=== PATIENT | male | born 1950 | race Caucasian/White ===

== ENCOUNTER 2019-05-15 19:21 | Inpatient (IN) | payer OTHER, MEDICAID ==
[~2019-05-15] VITALS: Ht 114.3 cm; Wt 64.2 kg
[2019-05-15 19:21] VITALS: BP_SYST 105
[2019-05-15] MEDS ORDERED: NACL 0.9% 1,000 ML IV ONE (19:52)
[2019-05-15] MEDS ORDERED: methylPREDNISolone SOD SUCC/PF 62.5 MG/ML VIAL IVP ONE (20:00)
[2019-05-15] MEDS ORDERED: IPRATROPIUM BROM 0.5 MG/2.5 ML VIAL.NEB (ATROVENT) INH ONE (20:00)
[2019-05-15] MEDS ORDERED: ALBUTEROL SULFATE 0.083% 2.5 MG/3 ML VIAL.NEB INH ONE (20:00)
[2019-05-15] MEDS ORDERED: cefTRIAXone 1 GM IVPB PREMIX 50 ML IV ONE (20:15)
--- NOTE | 2019-05-15 20:20 | NUR ---
Patient to ER bed 6 to gown for evaluation. Side rails up.
--- NOTE | 2019-05-15 20:21 | NUR ---
Dr. Tay bedside for pt eval
[2019-05-15 20:23] LABS: BASOPHILS % (AUTO) 0.4 % (0.0-2.0); EOSINOPHILS # (AUTO) 0.1 K/uL (0.0-0.4); EOSINOPHILS % (AUTO) 1.3 % (0.0-4.0); HEMATOCRIT 29.5 % (36-54); HEMOGLOBIN 9.8 g/dL (14.0-18.0); LYMPHOCYTES # (AUTO) 2.3 K/uL (1.0-5.5); LYMPHOCYTES % (AUTO) 26.3 % (20.5-51.5); MEAN CORPUSCULAR HEMOGLOBIN 30 pg (27-31); MEAN CORPUSCULAR HGB CONC 33 % (32-36); MEAN CORPUSCULAR VOLUME 90 fL (79.0-98.0); MONOCYTES # (AUTO) 0.9 K/uL (0.0-1.0); MONOCYTES % (AUTO) 10.7 % (1.7-9.3); NEUTROPHILS # (AUTO) 5.2 K/uL (1.8-7.7); NEUTROPHILS % (AUTO) 61.3 % (40.0-70.0); PLATELET COUNT (AUTO) 334 K/uL (130-430); RED BLOOD CELL COUNT(AUTO) 3.27 MIL/uL (4.2-6.2); WHITE BLOOD COUNT (AUTO) 8.6 K/uL (4.8-10.8)
--- NOTE | 2019-05-15 20:25 | NUR ---
Pt BIBA from [facility] to ED with Hx of PVD, CAD, CHF, pneumonia, kidney transplant, cardiac disorder, diabetes, hypertension, renal failure, skin cancer, NSTEMI, triple bypass, bilateral above the knee amputation who presents with a 1 week history of gradual onset, moderate shortness of breath. Symptoms associated with cough and fever. Patient was BIBA from [facility] for decrease O2 saturation. Denies any nausea, vomiting, diarrhea. No other complaints and or injurieds Overall guarded condition Resting on gurney rails up
--- NOTE | 2019-05-15 20:30 | NUR ---
Lab at bedside for blood draw, well tolerated
[2019-05-15 20:37] LABS: CALCIUM 7.9 mg/dL (8.4-11.0); CREATININE 1.51 mg/dL (0.55-1.30); POTASSIUM 4.4 mmol/L (3.5-5.1)
[2019-05-15 20:40] LABS: INR 1.1 (0.80-1.20); PROTHROMBIN TIME 11.3 SECS (9.5-12.5)
[2019-05-15 20:53] LABS: ALBUMIN 2.1 g/dL (3.4-4.8); TOTAL BILIRUBIN 0.3 mg/dL (0.0-1.0)
[2019-05-15] MEDS ORDERED: FURO-149 PO (21:07)
[2019-05-15] MEDS ORDERED: CLOP75TA32 PO (21:07)
[2019-05-15] MEDS ORDERED: ISOS30TA6 PO (21:09)
[2019-05-15] MEDS ORDERED: LEVA1.2527 NEB ×2 (21:12)
[2019-05-15] MEDS ORDERED: ASPI-1153 PO (21:13)
[2019-05-15] MEDS ORDERED: AMLO5TAB4 PO (21:13)
[2019-05-15] MEDS ORDERED: CYCL25CA12 PO (21:14)
[2019-05-15] MEDS ORDERED: DOCU-144 PO (21:15)
[2019-05-15] MEDS ORDERED: SACU1TAB PO (21:17)
[2019-05-15] MEDS ORDERED: GLIP10TA11 PO (21:18)
[2019-05-15] MEDS ORDERED: GABA-531 PO (21:18)
[2019-05-15] MEDS ORDERED: GLU500 PO (21:19)
[2019-05-15] MEDS ORDERED: MULT-1100 PO (21:21)
[2019-05-15] MEDS ORDERED: SIMV40TA5 PO (21:22)
[2019-05-15] MEDS ORDERED: OMEP40CA33 PO (21:23)
--- NOTE | 2019-05-15 21:24 | NUR ---
Medication reconciliation completed with information provided by [facility]. Any prior medication reconciliation on file was reviewed and corrected.
[2019-05-15] MEDS ORDERED: FUROSEMIDE 40 MG/4 ML VIAL IVP ONE (21:30)
[2019-05-15] MEDS ORDERED: ASPIRIN 81 MG TAB.CHEW PO ONE (22:00)
[2019-05-15 22:20] LABS: BILIRUBIN,URINE NEGATIVE (NEGATIVE); BLOOD, URINE 3+ (NEGATIVE); COLOR,URINE YELLOW (YELLOW); GLUCOSE,URINE NEGATIVE (NEGATIVE); KETONES,URINE NEGATIVE (NEGATIVE); LEUKOCYTE ESTERASE ,URINE 1+ (NEGATIVE); NITRITE, URINE NEGATIVE (NEGATIVE); PH,URINE 5.5 (5.0-8.0); PROTEIN URINE 2+ (NEGATIVE); UROBILINOGEN,URINE 0.2 (0.2-1.0)
[2019-05-15 22:26] LABS: CLARITY/URINE HAZY (CLEAR)
[2019-05-15] MEDS ORDERED: DOCUSATE SODIUM 100 MG CAPSULE PO PRN (22:30)
[2019-05-15 22:34] LABS: BACTERIA,URINE MODERATE /HPF (None Seen); RBC,URINE 50-80 /HPF (0-3); WBC,URINE 80-100 /HPF (0-3)
[2019-05-15 22:35] LABS: CALCIUM OXALATE CRYSTALS,UR 0-10 /HPF (None Seen); MUCUS,URINE None Seen /LPF (None Seen); URINE AMORPHOUS URATE 2+ /HPF (None Seen); YEAST,URINE Moderate /HPF (None Seen)
--- NOTE | 2019-05-15 22:38 | NUR ---
Transfer to Telemetry via ACLS protocol. Licensed nurse present. IV present no signs or symptoms of infiltration.
--- NOTE | 2019-05-15 22:38 | NUR ---
Patient will be admitted to care of [facility]. Admitted to Telemetry unit. Will go to room 133. Belongings list completed. Complete and up to date summary report printed. SBAR report to be given at bedside with opportunity for questions.
--- NOTE | 2019-05-15 22:38 | NUR ---
ADMISSION: The patient, AYLIN LEVY, 69 y/o, M admitted by CAROLYNE QUILES MD,with the diagnosis of CHF , COPD EXACERBATION, ELEVATED TROPONIN, C RENAL FAILURE , POST RENAL TRANSPLANT TO ROOM 133 B Chidi BACH AT BEDSIDE .
[2019-05-15 22:45] VITALS: BP_SYST 104
[2019-05-15] MEDS ORDERED: ACETAMINOPHEN 325 MG TABLET PO PRN (22:45)
[2019-05-15] MEDS ORDERED: ZOLPIDEM TARTRATE 5 MG TABLET PO PRN (22:45)
[2019-05-16] VITALS (7 sets, daily range): BP systolic 93–136
--- NOTE | 2019-05-16 00:30 | NUR ---
ROUNDS [place] and water given and fed by pt's son, pt tolerated well. Aspiration precaution maintained with head elevated at 45 degrees. No complains of pain and no signs of acute distress noted. Safety precautions in place and call light with pt. Will continue to monitor.
[2019-05-16] MEDS: IPRATROPIUM/ALBUTEROL SULFATE 3 ML AMPUL.NEB (DUONEB) INH SCH ×4 (01:36→19:48)
--- NOTE | 2019-05-16 03:40 | NUR ---
ROUNDS Pt is resting in bed with both eyes closed, with visible chest rise and fall with non-labored breathing noted. No signs of acute distress or SOB noted. No needs at this time. Safety precautions in place and call light with pt. Will continue to monitor.
[2019-05-16] MEDS: LANSOPRAZOLE 30 MG CAPSULE.DR PO SCH (06:13)
[2019-05-16] MEDS: INSULIN LISPRO SLIDING SCALE 100 UNITS/ML VIAL (humaLOG) SUBCUT PRN ×4 (06:19→22:09)
--- NOTE | 2019-05-16 06:34 | NUR ---
CLOSING NOTES Pt is resting in bed with both eyes closed, with visible chest rise and fall with non-labored breathing noted. No complains of pain at this time. No signs of acute distress or SOB noted. All needs attended throughout the shift. Maintained O2 inhalation at 3L via nasal cannula. Safety precautions maintained with 3 side rails up, wheels locked, bed alarm on and in lowest level. Call light with pt. Will continue to monitor.
[2019-05-16 07:10] LABS: BASOPHILS % (AUTO) 0.2 % (0.0-2.0); HEMATOCRIT 30.4 % (36-54); LYMPHOCYTES # (AUTO) 0.4 K/uL (1.0-5.5); MEAN CORPUSCULAR HEMOGLOBIN 30 pg (27-31); MEAN CORPUSCULAR HGB CONC 33 % (32-36); MEAN CORPUSCULAR VOLUME 91 fL (79.0-98.0); MONOCYTES # (AUTO) 0.4 K/uL (0.0-1.0); NEUTROPHILS # (AUTO) 12.3 K/uL (1.8-7.7); NEUTROPHILS % (AUTO) 93.8 % (40.0-70.0); PLATELET COUNT (AUTO) 334 K/uL (130-430); RED BLOOD CELL COUNT(AUTO) 3.35 MIL/uL (4.2-6.2); RED CELL DISTRIBUTION WIDTH 16.3 % (9.0-15.0); WHITE BLOOD COUNT (AUTO) 13.1 K/uL (4.8-10.8)
--- NOTE | 2019-05-16 07:15 | NUR ---
Received report and patient from [facility] shift nurse. Patient in no acute distress. Awake, alert, oriented. Side rails x 3 up. Call light with in reach.
[2019-05-16 07:43] LABS: ALBUMIN 2.1 g/dL (3.4-4.8); CREATININE 1.68 mg/dL (0.55-1.30); POTASSIUM 4.4 mmol/L (3.5-5.1); THYROID STIMULATING HORMONE 0.89 uIu/mL (0.36-3.74)
[2019-05-16 07:56] LABS: TOTAL BILIRUBIN 0.5 mg/dL (0.0-1.0)
[2019-05-16] MEDS ORDERED: INSULIN GLARGINE 100 UNITS/ML 10 ML VIAL SUBCUT ONE ×2 (08:15→22:00)
--- NOTE | 2019-05-16 08:40 | NUR ---
MD Zimmerman requested original editing intern as consult or if unable Md Welch to be put on the case. Spoke to patient, original editing intern unable. MD Welch paged for consult.
[2019-05-16] MEDS ORDERED: SIMVASTATIN 40 MG TABLET PO SCH (09:00)
[2019-05-16] MEDS ORDERED: OMEPRAZOLE Non-Formulary 20 MG CAPSULE.DR PO SCH (09:00)
--- NOTE | 2019-05-16 09:03 | NUR ---
Nutrition Update Abdoulaye Scale 15 noted. Pt admitted for CHF, COPD. Diet: [facility] BMI: 51.1 kg/m2 RD to follow per nutrition care standards.
--- NOTE | 2019-05-16 09:13 | NUR ---
Nephro consult called: for Dr. Welch, regarding hx of kidney failure and right kidney transplant, ordered by Dr. Zimmerman, spoke with Nadine.
[2019-05-16] MEDS: ASPIRIN 81 MG TABLET(ECOTRIN) PO SCH (09:23)
[2019-05-16] MEDS: cefTRIAXone 1 GM in D5W 50 ML IV SCH (09:24)
[2019-05-16] MEDS: amLODIPine BESYLATE 5 MG TABLET PO SCH (09:25)
[2019-05-16] MEDS: GABAPENTIN 300 MG CAPSULE PO SCH ×3 (09:29→21:44)
[2019-05-16] MEDS: ISOSORBIDE MONONITRATE 30 MG TAB.ER.24H PO SCH ×2 (09:30→22:02)
[2019-05-16] MEDS: CLOPIDOGREL BISULFATE 75 MG TABLET PO SCH (09:31)
--- NOTE | 2019-05-16 13:15 | NUR ---
MD Zimmerman stated aware of troponin 0.434.
--- NOTE | 2019-05-16 17:56 | NUR ---
Cardiac consult called: for Dr. Mccarty, regarding CHF and elevated troponin, ordered by Dr. Zimmerman, spoke with Diane.
[2019-05-16] MEDS ORDERED: cefTRIAXone 1 GM in D5W 50 ML IV SCH (18:00)
[2019-05-16] MEDS ORDERED: FUROSEMIDE 40 MG/4 ML VIAL IVP ONE (18:15)
--- NOTE | 2019-05-16 19:09 | NUR ---
Patient in bed, awake, alert and in no acute distress. Side rails x 3 up. Call light with in reach. Endorsed patient and gave report to oncoming shift nurse.
--- NOTE | 2019-05-16 19:25 | NUR ---
Opening note Received patient resting in bed, no s/sx of distress, nonlabored breathing on 4L NC. IV is SL to RFA. Side rails up up 3x, bed alarm on and instructed on use of call light. Diego catheter bag is draining to gravity. Updated board and reviewed plan of care.
--- NOTE | 2019-05-16 20:09 | NUR ---
Breathing Tx RT providing breathing treatment.
[2019-05-16] MEDS: FUROSEMIDE 40 MG/4 ML VIAL IVP SCH (21:00)
--- NOTE | 2019-05-16 21:56 | NUR ---
Dr. Zimmerman s/w Dr. Zimmerman and informed Fingerstick BG is 235 mg/dL, she said give scheduled coverage and gave additional order to add 10 units Lantus. Order was readback and entered in [employer].
[2019-05-17] VITALS: BP_SYST 102
[2019-05-17] MEDS: IPRATROPIUM/ALBUTEROL SULFATE 3 ML AMPUL.NEB (DUONEB) INH SCH ×4 (00:39→22:44)
--- NOTE | 2019-05-17 04:20 | NUR ---
awake Patient was repositioned for comfort. He was assisted with a drink of water. He was assisted with the t.v. safety precautions in place and call light w/in reach.
[2019-05-17] MEDS: LANSOPRAZOLE 30 MG CAPSULE.DR PO SCH (06:17)
[2019-05-17] MEDS: INSULIN LISPRO SLIDING SCALE 100 UNITS/ML VIAL (humaLOG) SUBCUT PRN ×3 (06:21→21:27)
[2019-05-17 06:51] LABS: BASOPHILS % (AUTO) 0.3 % (0.0-2.0); HEMATOCRIT 30.5 % (36-54); HEMOGLOBIN 10.1 g/dL (14.0-18.0); LYMPHOCYTES # (AUTO) 0.7 K/uL (1.0-5.5); LYMPHOCYTES % (AUTO) 5.8 % (20.5-51.5); MEAN CORPUSCULAR HEMOGLOBIN 30 pg (27-31); MEAN CORPUSCULAR HGB CONC 33 % (32-36); MEAN CORPUSCULAR VOLUME 90 fL (79.0-98.0); MONOCYTES # (AUTO) 0.6 K/uL (0.0-1.0); MONOCYTES % (AUTO) 5.7 % (1.7-9.3); NEUTROPHILS # (AUTO) 10.1 K/uL (1.8-7.7); NEUTROPHILS % (AUTO) 88.2 % (40.0-70.0); PLATELET COUNT (AUTO) 301 K/uL (130-430); RED CELL DISTRIBUTION WIDTH 16.1 % (9.0-15.0); WHITE BLOOD COUNT (AUTO) 11.5 K/uL (4.8-10.8)
[2019-05-17 06:58] LABS: CALCIUM 8.1 mg/dL (8.4-11.0); CREATININE 2.01 mg/dL (0.55-1.30); THYROID STIMULATING HORMONE 0.96 uIu/mL (0.36-3.74); TOTAL BILIRUBIN 0.3 mg/dL (0.0-1.0)
[2019-05-17 08:00] VITALS: BP_SYST 138
--- NOTE | 2019-05-17 08:00 | NUR ---
initial notes rec patient awake laert with ivl infiltrated. denies pain. resp easy and unlabored. no sob noted. bed to the lowest position and side rails up and locked. will continue to monitor patient.
[2019-05-17] MEDS: cefTRIAXone 1 GM in D5W 50 ML IV SCH (09:16)
[2019-05-17] MEDS: amLODIPine BESYLATE 5 MG TABLET PO SCH (09:53)
[2019-05-17] MEDS: ISOSORBIDE MONONITRATE 30 MG TAB.ER.24H PO SCH ×2 (09:53→22:30)
[2019-05-17] MEDS: GABAPENTIN 300 MG CAPSULE PO SCH ×3 (09:53→22:29)
[2019-05-17] MEDS: CLOPIDOGREL BISULFATE 75 MG TABLET PO SCH (09:53)
[2019-05-17] MEDS: ASPIRIN 81 MG TABLET(ECOTRIN) PO SCH (09:53)
--- NOTE | 2019-05-17 10:35 | NUR ---
ARRANGED TO GET MEDICAL RECORDS FROM RECENT HOSPITALIZATION. PER DR BRENNAN, HE REQUESTED THE RECORDS FROM [facility] SPOKE TO DAVID. BUT THE PT SAID HIS LATEST HOSPITALIZATION WAS IN [facility]. I ALSO REQUESTED THE RECORDS . SPOKE TO IQRA AT [facility]
[2019-05-17 12:30] VITALS: BP_SYST 118
[2019-05-17] MEDS: FUROSEMIDE 40 MG/4 ML VIAL IVP SCH ×2 (13:42→22:30)
[2019-05-17] MEDS ORDERED: INSULIN GLARGINE 100 UNITS/ML 10 ML VIAL SUBCUT ONE (14:00)
[2019-05-17 16:15] VITALS: BP_SYST 117
--- NOTE | 2019-05-17 17:51 | NUR ---
Dietitian Recommendations * [facility] * No further dietary restrictions warranted d/t suboptimal PO intakes * Encourage increase PO intakes * Consider Glucerna ONS if PO intakes do not improve LP, RD Please refer to Nutrition Assessment for details. Addendum: 05/17/19 at [address] Amended: Links added.
[2019-05-17] MEDS ORDERED: FLUCONAZOLE 100 MG TABLET (DIFLUCAN) PO ONE (18:00)
[2019-05-17] MEDS ORDERED: BISACODYL 10 MG/SUPPOSITORY RC PRN (18:15)
--- NOTE | 2019-05-17 19:35 | NUR ---
Opening note Received patient resting in bed, no s/sx of distress, nonlabored breathing. IV is SL to RFA. Side rails up up 3x, bed alarm on and instructed on use of call light. Diego catheter bag is draining to gravity. Updated board and reviewed plan of care.
--- NOTE | 2019-05-17 19:40 | NUR ---
Dr keyona Zimmerman making rounds and provided new orders
[2019-05-17 20:30] VITALS: BP_SYST 107
--- NOTE | 2019-05-17 21:30 | NUR ---
Fingerstick BG Fingerstick BG test done w/ result of 184 and administered 3u Humalog per sliding scale order.
[2019-05-17] MEDS: DOCUSATE SODIUM 250 MG CAPSULE PO SCH (22:29)
[2019-05-17 23:27] VITALS: BP_SYST 96
[2019-05-18] VITALS (7 sets, daily range): BP systolic 119–165
--- NOTE | 2019-05-18 01:33 | NUR ---
Can't sleep Patient reports he can't sleep and he said he said it is due to room mates noise. He said he does not understand why he was moved to this room and placed between two patients that are making noise. I offered him a sleeping pill and he agreed to take it, he was given Ambien as ordered. He was repositioned for comfort. Will follow up. Direct observer in room, with patient as she is a direct observer for patient in bed C.
[2019-05-18] MEDS: IPRATROPIUM/ALBUTEROL SULFATE 3 ML AMPUL.NEB (DUONEB) INH SCH ×4 (01:52→20:17)
--- NOTE | 2019-05-18 02:12 | NUR ---
Fingerstick BG Fingerstick BG test done w/ result of 131 mg/dL; no coverage.
[2019-05-18] MEDS: LANSOPRAZOLE 30 MG CAPSULE.DR PO SCH (06:09)
--- NOTE | 2019-05-18 06:18 | NUR ---
PAGED PAGED CAROLYNE YA [place] [phone] SPOKE WITH EXCHANGE.
--- NOTE | 2019-05-18 06:23 | NUR ---
S/W Dr Zimmerman s/w Dr. Zimmerman, I updated her on patient's blood sugar. Now it's 125 mg/dL and she said hold insulin. She also said she spoke w/ Dr. Elizabeth and he will be in to evaluate-follow patient.
--- NOTE | 2019-05-18 06:25 | NUR ---
X-ray X-ray tech at bedside for chest x-ray.
--- NOTE | 2019-05-18 06:28 | NUR ---
Closing Note Patient resting in bed in comfortable position, no s/sx of distress, nonlabored breathing. IV is SL to RFA. Side rails up up 3x, bed alarm. Diego catheter bag is draining to gravity. Needs met throughout shift, will endorse care to incoming day shift nurse.
[2019-05-18 07:22] LABS: BASOPHILS % (AUTO) 0.5 % (0.0-2.0); EOSINOPHILS # (AUTO) 0.1 K/uL (0.0-0.4); HEMOGLOBIN 9.4 g/dL (14.0-18.0); LYMPHOCYTES # (AUTO) 1.2 K/uL (1.0-5.5); LYMPHOCYTES % (AUTO) 14.9 % (20.5-51.5); MEAN CORPUSCULAR HEMOGLOBIN 30 pg (27-31); MEAN CORPUSCULAR HGB CONC 34 % (32-36); MEAN CORPUSCULAR VOLUME 90 fL (79.0-98.0); MONOCYTES # (AUTO) 0.8 K/uL (0.0-1.0); MONOCYTES % (AUTO) 10.1 % (1.7-9.3); NEUTROPHILS # (AUTO) 5.9 K/uL (1.8-7.7); NEUTROPHILS % (AUTO) 73.5 % (40.0-70.0); PLATELET COUNT (AUTO) 310 K/uL (130-430); RED BLOOD CELL COUNT(AUTO) 3.12 MIL/uL (4.2-6.2); RED CELL DISTRIBUTION WIDTH 16.2 % (9.0-15.0)
[2019-05-18 07:41] LABS: ALBUMIN 2.1 g/dL (3.4-4.8); CALCIUM 8.1 mg/dL (8.4-11.0); CREATININE 1.5 mg/dL (0.55-1.30); PHOSPHORUS 3.1 mg/dL (2.7-4.5); POTASSIUM 3.9 mmol/L (3.5-5.1); TOTAL BILIRUBIN 0.3 mg/dL (0.0-1.0)
--- NOTE | 2019-05-18 07:50 | NUR ---
INITIAL NOTE RECEIVED PT IN BED, NO S/S OF DISTRESS OR SOB NOTED, PT HAS NO C/O PAIN AT THIS TIME, PT IN STABLE CONDITION, PT AAOX3, VERBAL. IV CATHETER PATENT, NO SIGNS OF INFECTION OR INFILTRATION NOTED. PT HAS OXYGEN 2 LITERS VIA NASAL CANNULA, SATURATION OF 95%. BED AT LOWEST POSITION, CALL LIGHT WITHIN REACH, WILL CONTINUE TO MONITOR PT FOR ANY CHANGES, FALL AND SAFETY PRECAUTIONS IN PLACE.
[2019-05-18] MEDS: ISOSORBIDE MONONITRATE 30 MG TAB.ER.24H PO SCH ×2 (08:35→20:45)
[2019-05-18] MEDS: ASPIRIN 81 MG TABLET(ECOTRIN) PO SCH (08:35)
[2019-05-18] MEDS: CLOPIDOGREL BISULFATE 75 MG TABLET PO SCH (08:36)
[2019-05-18] MEDS: amLODIPine BESYLATE 5 MG TABLET PO SCH (08:36)
[2019-05-18] MEDS: FLUCONAZOLE 100 MG TABLET (DIFLUCAN) PO SCH (08:36)
[2019-05-18] MEDS: DOCUSATE SODIUM 250 MG CAPSULE PO SCH ×2 (08:36→20:45)
[2019-05-18] MEDS: GABAPENTIN 300 MG CAPSULE PO SCH ×3 (08:36→20:47)
[2019-05-18] MEDS: FUROSEMIDE 40 MG/4 ML VIAL IVP SCH ×2 (08:37→20:47)
[2019-05-18] MEDS: cefTRIAXone 1 GM in D5W 50 ML IV SCH (08:38)
--- NOTE | 2019-05-18 10:30 | NUR ---
ROUNDS PT IN BED, NO S/S OF DISTRESS OR SOB NOTED. PT HAS NO C/O PAIN AT THIS TIME. PT IN STABLE CONDITION. PT RESTING COMFORTABLY. PT WATCHING TV, WILL CONTINUE TO MONITOR PT FOR ANY CHANGES.
--- NOTE | 2019-05-18 11:30 | NUR ---
CALL PAGED DR HURTADO FOR ORDERS TO COVER PATIENT'S BLOOD GLUCOSE OF [phone], AWAITING CALL BACK. Addendum: 05/18/19 at 1311 by Paulette Green RN SPOKE WITH AND GAVE NEW ORDERS FOR INSULIN COVERAGE
[2019-05-18] MEDS: INSULIN LISPRO SLIDING SCALE 100 UNITS/ML VIAL (humaLOG) SUBCUT PRN ×2 (12:22→17:06)
--- NOTE | 2019-05-18 18:37 | NUR ---
CLOSING NOTE PT IN BED, NO S/S OF DISTRESS OR SOB NOTED, PT HAS NO C/O PAIN AT THIS TIME, PT IN STABLE CONDITION, PT AAOX3, VERBAL. IV CATHETER PATENT, NO SIGNS OF INFECTION OR INFILTRATION NOTED. PT HAS OXYGEN 2 LITERS VIA NASAL CANNULA, SATURATION OF 95%. BED AT LOWEST POSITION, CALL LIGHT WITHIN REACH, WILL ENDORSE CARE OF PT TO INCOMING NURSE, FALL AND SAFETY PRECAUTIONS IN PLACE.
--- NOTE | 2019-05-18 19:20 | NUR ---
Opening note Received patient resting in bed, no s/sx of distress, nonlabored breathing. IV is SL to RFA. He is talking with son, visiting at bedside. Side rails up up 3x, bed alarm on and instructed on use of call light. Diego catheter bag is draining to gravity. Updated board and reviewed plan of care.
--- NOTE | 2019-05-18 20:58 | NUR ---
medications Due medications given, educated on side effects and he verbalized understanding. Fingerstick BS done w/ result of 144mg/dL; no coverage. He has no further needs, will continue to monitor.
--- NOTE | 2019-05-19 00:20 | NUR ---
RN rounds Patient resting w/ eyes closed, momentarily awakened for reposition. No s/sx of distress. Safety precautions in place and call light w/in reach.
[2019-05-19] MEDS: IPRATROPIUM/ALBUTEROL SULFATE 3 ML AMPUL.NEB (DUONEB) INH SCH ×4 (01:28→19:50)
--- NOTE | 2019-05-19 02:10 | NUR ---
Resting Patient resting in comfortable position, symmetrical rise and fall of chest noted, nonlabored breathing. Safety precautions in place and call light w/in reach.
--- NOTE | 2019-05-19 04:15 | NUR ---
RN rounds Patient resting w/ eyes closed, momentarily awakened for reposition. No s/sx of distress. Presently denies pain and has no further needs. Safety precautions in place and call light w/in reach.
--- NOTE | 2019-05-19 05:11 | NUR ---
Lab draw light technician at bedside for blood draw.
[2019-05-19] MEDS: LANSOPRAZOLE 30 MG CAPSULE.DR PO SCH (06:29)
--- NOTE | 2019-05-19 07:00 | NUR ---
closing note Fingerstick BS done w/ result of 108 mg/dL; no coverage. Sacral dressing change done, repositioned supine per his request. Safety precautions in place, call light near. Needs met throughout shift, will endorse care to incoming nurse. He has no further needs, will continue to monitor.
[2019-05-19 07:26] LABS: BASOPHILS # (AUTO) 0.1 K/uL (0.0-0.2); BASOPHILS % (AUTO) 0.9 % (0.0-2.0); EOSINOPHILS # (AUTO) 0.2 K/uL (0.0-0.4); HEMATOCRIT 28.6 % (36-54); HEMOGLOBIN 9.6 g/dL (14.0-18.0); LYMPHOCYTES # (AUTO) 1.6 K/uL (1.0-5.5); LYMPHOCYTES % (AUTO) 20.9 % (20.5-51.5); MEAN CORPUSCULAR HEMOGLOBIN 30 pg (27-31); MEAN CORPUSCULAR HGB CONC 34 % (32-36); MEAN CORPUSCULAR VOLUME 90 fL (79.0-98.0); MONOCYTES # (AUTO) 0.8 K/uL (0.0-1.0); MONOCYTES % (AUTO) 10.7 % (1.7-9.3); NEUTROPHILS # (AUTO) 4.8 K/uL (1.8-7.7); PLATELET COUNT (AUTO) 333 K/uL (130-430); WHITE BLOOD COUNT (AUTO) 7.5 K/uL (4.8-10.8)
[2019-05-19 07:48] LABS: ALBUMIN 2.1 g/dL (3.4-4.8); CALCIUM 8.1 mg/dL (8.4-11.0); CREATININE 1.04 mg/dL (0.55-1.30); PHOSPHORUS 2.8 mg/dL (2.7-4.5); POTASSIUM 3.6 mmol/L (3.5-5.1); TOTAL BILIRUBIN 0.4 mg/dL (0.0-1.0)
[2019-05-19 08:00] VITALS: BP_SYST 112
--- NOTE | 2019-05-19 08:00 | NUR ---
Note Pt was assisted into sitting up in bed to eat breakfast. No SOB/resp distress or pain/discomfort noted at this time. O2 at 2L/nc on at this time. Tele unit attached and intact. IV in right forearm intact and patent. No needs noted at this time. Call light within reach.
[2019-05-19] MEDS: cefTRIAXone 1 GM in D5W 50 ML IV SCH (08:58)
[2019-05-19] MEDS: CLOPIDOGREL BISULFATE 75 MG TABLET PO SCH (09:14)
[2019-05-19] MEDS: amLODIPine BESYLATE 5 MG TABLET PO SCH (09:14)
[2019-05-19] MEDS: FLUCONAZOLE 100 MG TABLET (DIFLUCAN) PO SCH (09:14)
[2019-05-19] MEDS: ASPIRIN 81 MG TABLET(ECOTRIN) PO SCH (09:14)
[2019-05-19] MEDS: DOCUSATE SODIUM 250 MG CAPSULE PO SCH ×2 (09:14→20:12)
[2019-05-19] MEDS: ISOSORBIDE MONONITRATE 30 MG TAB.ER.24H PO SCH ×2 (09:15→20:13)
[2019-05-19] MEDS: GABAPENTIN 300 MG CAPSULE PO SCH ×3 (09:15→20:13)
[2019-05-19] MEDS: FUROSEMIDE 40 MG/4 ML VIAL IVP SCH ×2 (09:16→20:13)
[2019-05-19] MEDS: INSULIN GLARGINE 100 UNITS/ML 10 ML VIAL SUBCUT SCH (09:27)
[2019-05-19 09:38] LABS: NEUTROPHILS % (AUTO) 64.5 % (40.0-70.0)
--- NOTE | 2019-05-19 11:00 | NUR ---
Note Pt has 2 visitors at bedside at this time. Pt denies any needs at this time. Diego catheter intact and draining well all shift. Call light within reach.
[2019-05-19 11:30] VITALS: BP_SYST 134
[2019-05-19] MEDS: INSULIN LISPRO SLIDING SCALE 100 UNITS/ML VIAL (humaLOG) SUBCUT PRN ×2 (11:55→20:22)
--- NOTE | 2019-05-19 15:00 | NUR ---
Note Pt asleep in bed with O2 at 2L/nc at this time. No needs noted at this time. Call light within reach. Tele unit intact and attached.
[2019-05-19 16:00] VITALS: BP_SYST 133
--- NOTE | 2019-05-19 18:02 | NUR ---
Note Pt sitting up in bed eating his dinner. No SOB/resp distress or pain/discomfort noted at this time. Pt has O2 at 2L/nc all shift. Diego catheter intact and draining all shift. Tele unit intact and attached all shift. Pt was checked on q1' and PRN all shift for needs and care. IV in right hand intact and patent. No needs noted at this time. Call light within reach. Pt maintained with safety precautions all shift.
--- NOTE | 2019-05-19 19:10 | NUR ---
OPENING NOTES Patient awake, sitting in bed watching TV, AOx3. Patient has no signs of respiratory distress noted, denies pain and discomfort at this time. On 2L of oxygen vis nasal cannula, attached and secured. IV site, patency noted. Diego catheter, attached and secured, draining by gravity. Vital signs take and recorded. Call light within reach, patient educated to use call light when assistance is needed, patient verbalized understanding. Bed locked and in lowest position. Bed alarm on. Safety precautions in place. Will continue to monitor patient.
[2019-05-19 20:01] VITALS: BP_SYST 135
--- NOTE | 2019-05-19 20:20 | NUR ---
MED PASS/BS 182 Due medication given at this time, patient tolerated well. Patient educated on purpose, side effects and benefits of each medication that is taken, patient verbalized understanding. Needs attended at this time. Repositioned for comfort. Safety precautions in place. Will continue to monitor patient.
--- NOTE | 2019-05-19 23:25 | NUR ---
RN ROUNDS Patient asleep at this time. No signs of respiratory distress and discomfort noted. Breathing even and unlabored. On 2L of oxygen, attached and secured. Safety precautions in place. Will continue to monitor patient.
[2019-05-20] MEDS: IPRATROPIUM/ALBUTEROL SULFATE 3 ML AMPUL.NEB (DUONEB) INH SCH ×3 (01:30→13:35)
--- NOTE | 2019-05-20 01:30 | NUR ---
MIYA CARE/WOUND CARE Miya care done at this time, with help of VANDANA Batista. Wound care done, patient tolerated well. No signs of respiratory distress and discomfort noted. Denies pain at this time. Safety precautions in place. Will continue to monitor.
[2019-05-20 02:11] VITALS: BP_SYST 140
--- NOTE | 2019-05-20 02:35 | NUR ---
RN ROUNDS Patient asleep at this time. No signs of respiratory distress and discomfort noted. Breathing even and unlabored. On 2L of oxygen, attached and secured. Diego attached and secured, draining by gravity. Safety precautions in place. Will continue to monitor patient.
[2019-05-20] MEDS: LANSOPRAZOLE 30 MG CAPSULE.DR PO SCH (06:12)
[2019-05-20] MEDS: INSULIN LISPRO SLIDING SCALE 100 UNITS/ML VIAL (humaLOG) SUBCUT PRN ×3 (06:15→16:22)
--- NOTE | 2019-05-20 06:26 | NUR ---
CLOSING NOTES Patient awake and watching TV. Patient has no signs of respiratory distress noted. Denies pain and discomfort at this time. On 2L of oxygen via nasal cannula, attached and secured. IV site, patency noted. Diego catheter, attached and secured, draining by gravity. Call light within reach. Bed locked and in lowest position. Bed alarm on. Safety precautions in place. Repositioned Q2H. All needs met throughout the shift. Will continue to monitor until endorse to oncoming shift nurse for continuity of care.
[2019-05-20 08:14] LABS: CALCIUM 8.3 mg/dL (8.4-11.0); CREATININE 0.97 mg/dL (0.55-1.30); POTASSIUM 3.8 mmol/L (3.5-5.1)
[2019-05-20] MEDS: cefTRIAXone 1 GM in D5W 50 ML IV SCH (08:28)
[2019-05-20] MEDS: ASPIRIN 81 MG TABLET(ECOTRIN) PO SCH (08:28)
[2019-05-20] MEDS: CLOPIDOGREL BISULFATE 75 MG TABLET PO SCH (08:28)
[2019-05-20] MEDS: DOCUSATE SODIUM 250 MG CAPSULE PO SCH (08:28)
[2019-05-20] MEDS: FLUCONAZOLE 100 MG TABLET (DIFLUCAN) PO SCH (08:28)
[2019-05-20] MEDS: GABAPENTIN 300 MG CAPSULE PO SCH ×2 (08:28→14:20)
[2019-05-20] MEDS: amLODIPine BESYLATE 5 MG TABLET PO SCH (08:29)
[2019-05-20] MEDS: INSULIN GLARGINE 100 UNITS/ML 10 ML VIAL SUBCUT SCH (08:30)
[2019-05-20] MEDS: FUROSEMIDE 40 MG/4 ML VIAL IVP SCH (08:31)
[2019-05-20] MEDS: ISOSORBIDE MONONITRATE 30 MG TAB.ER.24H PO SCH (08:34)
[2019-05-20 08:40] VITALS: BP_SYST 113
[2019-05-20 12:24] VITALS: BP_SYST 140
--- NOTE | 2019-05-20 12:25 | NUR ---
ROUNDS PT IN BED, NO S/S OF DISTRESS OR SOB NOTED. PT HAS NO C/O PAIN AT THIS TIME. PT IN STABLE CONDITION. PT RESTING COMFORTABLY. PT TALKING TO VISITORS AT BEDSIDE, WILL CONTINUE TO MONITOR PT FOR ANY CHANGES.
--- NOTE | 2019-05-20 13:55 | NUR ---
ROUNDS DR ETTA BAIRD, AWARE OF PATIENT'S CONDITION, PER PT TO BE TRANSFERRED BACK TO [facility] TODAY, SHE PUT THE ORDER IN YESTERDAY, MADE MD AWARE THAT NO POCKET MACHINE OPERATOR IS ON TODAY BUT WILL TRY TO SEND PT BACK TODAY. Addendum: 05/20/19 at 1410 by Paulette Green RN MADE AWARE THAT PATIENT'S HEART RATE IS IN THE 100'S, PER THIS IS CHRONIC FOR PT
--- NOTE | 2019-05-20 15:08 | NUR ---
MD CALL DR ETTA SHELTON, AWAITING CALL BACK TO SEE IF PT WILL NEED THE F/C AT [facility].
--- NOTE | 2019-05-20 15:10 | NUR ---
MARLENI BROWN SPOKE WITH SARA RN REGULATORY CONSULTANT TO SEE IF PT STILL HAD A BED FOR D/C. PER RN PT IS GOING TO ROOM 109 BED C. SON AT BEDSIDE AND MADE AWARE AND PT MADE AWARE TOO. DISCHARGE PACKET DONE AND TRANSPORTATION WILL BE SET UP.
--- NOTE | 2019-05-20 15:37 | NUR ---
F/C D/C F/C D/C, CATHETER INTACT, NO ACTIVE BLEEDING NOTED, BLADDER NON DISTENDED, WILL NOTIFY MARLENI BROWN THAT F/C WAS D/C AND TO MONITOR FOR VOIDING PER DR QUILES'S ORDER. IF NOT VOIDING, MAY NEED PRN CATHETER INSERTION. EDUCATED PT TO LET NURSE WHEN HE FIRST VOIDS, PT VERBALIZED UNDERSTANDING.
--- NOTE | 2019-05-20 15:40 | NUR ---
AMBULANCE ARRANGEMENT [facility] CALLED SPOKE WITH DAVID FOR A 1800 TUBE BLOWER.
[2019-05-20 16:00] VITALS: BP_SYST 140
[2019-05-20 16:32] VITALS: BP_SYST 128
--- NOTE | 2019-05-20 17:03 | NUR ---
REPORT REPORT GIVEN TO BOSSMAN MORENO AT [facility], , MADE AWARE THAT PT NEEDS DIFLUCAN AND ROCEPHIN UNTIL 05/22/2019 D/C METFORMIN AND DO POST VOID US ON BLADDER AND IF OVER 300CC DO STRAIGHT CATH MADE AWARE THAT PT HAS AN IV CATHETER ON RIGHT FOREARM 22 GAUGE
--- NOTE | 2019-05-20 18:22 | NUR ---
PT TRANSFERRED Report given to Bernarda at [facility]. Transfer packet with Transfer Orders and Medication Reconciliation form given to EMT with report. Exitcare provided. [facility] ID band removed, replaced with ID band with pt's name and . IV catheter in place, saline lock, flushes, no signs of infection or infiltration noted. All belongings sent with patient. Patient left floor via gurney escorted by EMT in no distress. Made Bernarda RN aware that pt has not voided yet and f/c was removed.
== END 2019-05-20 18:22 | DRG 682 ==
LOC: SED 19:21 → STU 21:50
PROVIDERS: ADMIT Internal Medicine; ATTEND Internal Medicine
DX: N17.0 Acute kidney failure with tubular necrosis (principal); J18.9 Pneumonia, unspecified organism; E43 Unspecified severe protein-calorie malnutrition; I50.43 Acute on chronic combined systolic (congestive) and diastolic (congestive) heart failure; I13.0 Hypertensive heart and chronic kidney disease with heart failure and stage 1 through stage 4 chronic kidney disease, or unspecified chronic kidney disease; J44.0 Chronic obstructive pulmonary disease with (acute) lower respiratory infection; J44.1 Chronic obstructive pulmonary disease with (acute) exacerbation; I48.20 Chronic atrial fibrillation, unspecified; T86.19 Other complication of kidney transplant; N39.0 Urinary tract infection, site not specified; Z68.42 Body mass index [BMI] 45.0-49.9, adult; N17.9 Acute kidney failure, unspecified; J20.9 Acute bronchitis, unspecified; Y83.0 Surgical operation with transplant of whole organ as the cause of abnormal reaction of the patient, or of later complication, without mention of misadventure at the time of the procedure; E66.01 Morbid (severe) obesity due to excess calories; N18.9 Chronic kidney disease, unspecified; E11.22 Type 2 diabetes mellitus with diabetic chronic kidney disease; D64.9 Anemia, unspecified; K21.9 Gastro-esophageal reflux disease without esophagitis; E11.51 Type 2 diabetes mellitus with diabetic peripheral angiopathy without gangrene; E11.649 Type 2 diabetes mellitus with hypoglycemia without coma; E78.5 Hyperlipidemia, unspecified; I25.10 Atherosclerotic heart disease of native coronary artery without angina pectoris; I25.2 Old myocardial infarction; Y92.89 Other specified places as the place of occurrence of the external cause; Z74.01 Bed confinement status; Z79.02 Long term (current) use of antithrombotics/antiplatelets; Z79.4 Long term (current) use of insulin; Z79.82 Long term (current) use of aspirin; Z79.899 Other long term (current) drug therapy; Z82.49 Family history of ischemic heart disease and other diseases of the circulatory system; Z83.3 Family history of diabetes mellitus; Z86.73 Personal history of transient ischemic attack (TIA), and cerebral infarction without residual deficits; Z89.611 Acquired absence of right leg above knee; Z89.612 Acquired absence of left leg above knee; Z95.1 Presence of aortocoronary bypass graft; Z85.828 Personal history of other malignant neoplasm of skin
CPT/HCPCS: 36415; 36600; 71045; 80048; 80053; 80061; 80158; 81000-TC; 82150-TC; 82550-TC; 82803-TC; 82962; 83036; 83605; 83690-TC; 83735-TC; 83880; 84100-TC; 84443-TC; 84484; 85025; 85610-TC; 87040-TC; 87081; 87086; 93005; 93306; 94640; 94760; 96361; 96365; 96375; 99285; G0378; J0696; J1815; J1940; J2930; J7060; J7515; J7613